=== PATIENT | male | born 1985 | race Caucasian/White ===

== ENCOUNTER 2020-08-08 13:40 | Emergency (ER) | payer OTHER ==
[~2020-08-08] VITALS: Ht 182.9 cm; Wt 98.1 kg
[2020-08-08 13:46] VITALS: BP 124/84
[2020-08-08] MEDS ORDERED: LIDOCAINE-MPF 1%, 5ML ONE (13:51)
[2020-08-08] MEDS ORDERED: DIPH,PERTUSS(ACELL),TET VAC/PF 0.5 ML IM-VACC ONE ×2 (14:20→14:30)
[2020-08-08] MEDS ORDERED: LIDOCAINE-MPF 1%, 5ML INFIL ONE (14:30)
[2020-08-08] MEDS ORDERED: MICROFIBRILLAR COLLAGEN 1 GM TP ONE (14:36)
[2020-08-08] MEDS ORDERED: MICROFIBRILLAR COLLAGEN 0.5GM/PACK TP ONE (15:00)
[2020-08-08] MEDS ORDERED: NEOSPORIN OINT. PKT 1 PACKET ONE (15:15)
== END 2020-08-08 15:39 | disposition home or self-care (01) ==
LOC: ED 14:04
DX: S61.313A Laceration without foreign body of left middle finger with damage to nail, initial encounter (principal); X58.XXXA Exposure to other specified factors, initial encounter; Y93.89 Activity, other specified; Y92.009 Unspecified place in unspecified non-institutional (private) residence as the place of occurrence of the external cause; Y99.8 Other external cause status
CPT/HCPCS: 12041; 90471; 90715